=== PATIENT | female | born 1970 | race Caucasian/White ===

== ENCOUNTER 2023-03-01 07:03 | Outpatient (CLI) | payer OTHER, SELFPAY ==
--- NOTE | ~2023-03-01 | MR_ITS ---
MRI of the cervical spine Clinical History: Cervicalgia Technique: Axial T2-weighted and gradient images, and sagittal T1-weighted, T2-weighted, and STIR inés ges were acquired. Findings: There is straightening of the normal cervical lordosis. No acute fracture or subluxation se en. There is anterior and interbody fusion from C6 to C7. No suspicious bone marrow signal abnormalit y identified. At C2-C3, there is no disc bulge or herniation. No spinal canal stenosis, cord compression, or neural foraminal narrowing. At C3-C4, there is minimal disc osteophyte complex. No spinal canal stenosis, cord compression, or de finite neural foraminal narrowing. At C4-C5, there is disc osteophyte compress with mild canal stenosis, but no calos cord compression. There is bilateral neural foraminal narrowing. At C5-C6, there is disc osteophyte complex with mild canal stenosis but no calos cord compression. Th ere is bilateral neural foraminal narrowing. At C6-C7, there is possible focal ossification the posterior longitudinal ligament. There is minimal canal stenosis without calos cord compression. Bilateral neural foramina are preserved. No abnormal signal seen in the spinal cord. Paravertebral soft tissues are unremarkable. Impression: Anterior and interbody fusion from C6 to C7. Degenerative spondylosis with multilevel mild canal stenosis but no calos cord compression. Multilev el neural foraminal narrowing also present. Please see details above. Reviewed, dictated and finalized at [facility]. Impression: Anterior and interbody fusion from C6 to C7. Degenerative spondylosis with multilevel mild canal stenosis but no calos cord compression. Multilevel neural foraminal narrowing also present. Please see de tails above.
== END 2023-03-01 07:04 ==
LOC: MICIMG 07:05
PROVIDERS: PCP Nurse Practitioner Family; Visit Provider Nurse Practitioner Family
DX: M43.22 Fusion of spine, cervical region (principal); M43.02 Spondylolysis, cervical region; M48.02 Spinal stenosis, cervical region; M54.2 Cervicalgia; M54.12 Radiculopathy, cervical region
CPT/HCPCS: 72141